=== PATIENT | female | born 1975 | race African-American/Black ===

== ENCOUNTER 2016-11-10 19:24 | Emergency (ER) | payer OTHER ==
[~2016-11-10] VITALS: Ht 175.3 cm; Wt 142.0 kg
[~2016-11-10 19:24] MED LIST: AMLODIPINE5 MG PO; BYSTOLIC5 MG PO; ENALAPRIL2.5 MG OR; FERR SULFATE325 MG PO; FLAGYL500 MG OR; FLAGYL500 MG PO; HYDROCHLOROT12.5 MG OR; KENALOG15 GM/TUBE EX; LORTAB5 OR; PARAGARD IU; PHENTERMINE HCL15 MG PO
[2016-11-10] MEDS ORDERED: LISINOPRIL10 MG PO (19:36)
[2016-11-10] MEDS ORDERED: METOPROL TAR25 MG PO (19:36)
[2016-11-10] MEDS ORDERED: LEXAPRO10 MG PO (19:36)
[2016-11-10 20:27] LABS: URINE BILIRUBIN - DIPSTICK NEGATIVE (NEGATIVE); URINE BLOOD DIPSTICK TRACE-INTACT (NEGATIVE); URINE CLARITY CLEAR; URINE COLOR YELLOW; URINE GLUCOSE - DIPSTICK NEGATIVE (NEGATIVE); URINE KETONE NEGATIVE (NEGATIVE); URINE LEUK ESTERASE NEGATIVE (NEGATIVE); URINE NITRITE - DIPSTICK NEGATIVE (Negative); URINE PROTEIN - DIPSTICK NEGATIVE (NEG-TRACE); URINE SPECIFIC GRAVITY >=1.030
[2016-11-10 20:34] LABS: HEMATOCRIT 36.8 % (37.0-47.0); IMMATURE GRANULOCYTES 0.5 % (0.0-1.0); MEAN CELL VOLUME 78.6 fL CALC (80.0-100.0); MEAN CORPUSCULAR HGB 25.6 pG CALC (26.0-32.0); MEAN CORPUSCULAR HGB CONC 32.6 g/L CALC (32.0-36.0); NEUT# 11.06 thou/uL (2.00-7.15); RED BLOOD COUNT 4.68 mill/uL (4.20-5.60); RED CELL DISTRI WIDTH 14.6 % (11.5-15.5)
[2016-11-10 20:35] LABS: BARBITURATES NEGATIVE (NEGATIVE); COCAINE NEGATIVE (NEGATIVE); METHADONE NEGATIVE (NEGATIVE); OXCYCODONE NEGATIVE (NEGATIVE); TETRAHYDROCANNABIONOL NEGATIVE (NEGATIVE); TRICYLIC ANTIDEPRESSANTS NEGATIVE (NEGATIVE)
[2016-11-10 20:48] LABS: ALBUMIN 4.2 g/dL (3.2-5.0); ALKALINE PHOSPHATASE 62 u/l (38-126); ANION GAP 17 (6-22 (CALC)); BILIRUBIN, TOTAL 0.5 mg/dL (0.0-1.4); BUN 15 mg/dL (7-17); BUN/CREATININE RATIO 18 (12-20 (CALC)); CALCIUM 8.9 mg/dL (8.4-10.2); CARBON DIOXIDE 25 mmol/l (22-30); CHLORIDE 104 mmol/l (95-108); CREATININE 0.9 mg/dL (0.5-1.0); GFR > 60 ML/MIN (>=60 (CALC)); GFR FOR AFR.AMER. > 60 ML/MIN (>=60 (CALC)); GLUCOSE 150 mg/dL (65-105); POTASSIUM 3.8 mmol/l (3.5-5.1); SGOT/AST 25 u/l (14-36); SGPT/ALT 22 u/l (9-52); SODIUM 142 mmol/l (137-146); TOTAL PROTEIN 7.4 g/dL (6.3-8.2)
[2016-11-10 20:49] LABS: INFLUENZA A NONE DETECTED (NONE DETECT); INFLUENZA B NONE DETECTED (NONE DETECT)
[2016-11-10] MEDS ORDERED: CEPHALEXIN500 MG PO (20:57)
[2016-11-10 21:05] VITALS: BP 154/81
== END 2016-11-10 21:05 | disposition home or self-care (01) | DRG 305 ==
LOC: ED 19:24
PROVIDERS: Emergency Medicine
DX: I10 Essential (primary) hypertension (principal); J06.9 Acute upper respiratory infection, unspecified; R05 Cough

== ENCOUNTER 2018-08-27 15:58 | Observation (INO) | payer OTHER ==
[~2018-08-27] VITALS: Ht 175.3 cm; Wt 136.8 kg
[~2018-08-27 15:58] MED LIST changes: +CEPHALEXIN500 MG PO; +LEXAPRO10 MG PO; +LISINOPRIL10 MG PO; +METOPROL TAR25 MG PO
[2018-08-27] MEDS ORDERED: WELLBUTRIN XL150 MG PO (16:20)
[2018-08-27] MEDS ORDERED: LOSARTAN POT50 MG PO (16:21)
[2018-08-27] MEDS ORDERED: AMLODIPINE10 MG PO (16:21)
[2018-08-27] MEDS ORDERED: BYSTOLIC20 MG PO (16:22)
[2018-08-27] MEDS ORDERED: TRULICITY1.5 MG/0.5 SC (16:22)
[2018-08-27 16:42] LABS: URINE BILIRUBIN - DIPSTICK NEGATIVE (NEGATIVE); URINE BLOOD DIPSTICK NEGATIVE (NEGATIVE); URINE COLOR YELLOW; URINE GLUCOSE - DIPSTICK NEGATIVE (NEGATIVE); URINE KETONE TRACE mg/dL (NEGATIVE); URINE LEUK ESTERASE NEGATIVE (NEGATIVE); URINE NITRITE - DIPSTICK NEGATIVE (Negative); URINE PH 6.5 (4.5-8.0); URINE PROTEIN - DIPSTICK NEGATIVE (NEG-TRACE); URINE SPECIFIC GRAVITY 1.025; URINE UROBILINOGEN - DIPSTICK 0.2 E.U./dL (0.2)
[2018-08-27 16:59] LABS: HEMATOCRIT 37.9 % (37.0-47.0); HEMOGLOBIN 12.5 g/dl (12.0-16.0); IMMATURE GRANULOCYTES 0.4 % (0.0-5.0); MEAN CELL VOLUME 80.8 fL CALC (80.0-100.0); MEAN CORPUSCULAR HGB 26.7 pG CALC (26.0-32.0); NEUT# 4.44 thou/uL (2.00-7.15); RED BLOOD COUNT 4.69 mill/uL (4.20-5.60)
[2018-08-27 17:17] LABS: ALBUMIN 4.3 g/dL (3.2-5.0); ALKALINE PHOSPHATASE 54 u/l (38-126); ANION GAP 13 (6-22 (CALC)); BILIRUBIN, TOTAL 0.4 mg/dL (0.0-1.4); BUN 11 mg/dL (7-17); BUN/CREATININE RATIO 13 (12-20 (CALC)); CARBON DIOXIDE 25 mmol/l (22-30); CHLORIDE 104 mmol/l (95-108); CREATININE 0.8 mg/dL (0.5-1.0); GFR > 60 ML/MIN (>=60 (CALC)); GFR FOR AFR.AMER. > 60 ML/MIN (>=60 (CALC)); POTASSIUM 3.9 mmol/l (3.5-5.1); SGOT/AST 18 u/l (14-36); SODIUM 138 mmol/l (137-146); TOTAL PROTEIN 7.5 g/dL (6.3-8.2)
[2018-08-27 20:55] VITALS: BP 167/107
[2018-08-28] VITALS: BP 147/81
[2018-08-28 04:00] VITALS: BP 112/63
[2018-08-28 08:41] VITALS: BP 120/71
[2018-08-28 15:40] VITALS: BP 146/99
[2018-08-28] MEDS ORDERED: ADULT ASPIRIN E81 MG PO (16:38)
[2018-08-28] MEDS ORDERED: PROTONIX40 M2 PO (16:38)
== END 2018-08-28 17:30 | disposition home or self-care (01) | DRG 313 ==
LOC: ED 15:58 → ED-I 18:32 → ED 19:03 → MS2 19:04
PROVIDERS: Family Medicine; ADMIT Internal Medicine; ATTEND Internal Medicine
DX: R07.9 Chest pain, unspecified (principal); Z68.41 Body mass index [BMI] 40.0-44.9, adult; I16.0 Hypertensive urgency; I10 Essential (primary) hypertension; E11.9 Type 2 diabetes mellitus without complications; E66.01 Morbid (severe) obesity due to excess calories; Z79.84 Long term (current) use of oral hypoglycemic drugs
CPT/HCPCS: G0378

== ENCOUNTER → 2018-10-14 | Outpatient (REF) | payer OTHER ==
[~2018-10-14] MED LIST changes: +ADULT ASPIRIN E81 MG PO; +AMLODIPINE10 MG PO; +BYSTOLIC20 MG PO; +LOSARTAN POT50 MG PO; +PROTONIX40 M2 PO; +TRULICITY1.5 MG/0.5 SC; +WELLBUTRIN XL150 MG PO
[2018-10-14 17:02] VITALS: BP 238/109
== END | disposition home or self-care (01) | DRG 313 ==
LOC: STRESS 14:53 → NUCMED 15:00
PROVIDERS: ATTEND Internal Medicine
DX: R07.89 Other chest pain (principal); I20.9 Angina pectoris, unspecified
CPT/HCPCS: A9502

== ENCOUNTER 2019-06-25 08:11 | Day surgery (SDC) | payer OTHER ==
[~2019-06-25] VITALS: Ht 175.3 cm; Wt 138.3 kg
[~2019-06-25 08:11] MED LIST changes: -BYSTOLIC20 MG PO; +DIOVAN80 MG PO; -LOSARTAN POT50 MG PO; +MULTI VIT PO; +OMEPRAZOLE DR40 MG PO; +TOPROL XL50 MG PO
[2019-06-25 11:39] VITALS: BP 139/93
== END 2019-06-25 11:40 | disposition home or self-care (01) | DRG 951 ==
LOC: ORM 08:11
PROVIDERS: ATTEND Internal Medicine Gastroenterology
PROC: 0DB78ZX Excision of Stomach, Pylorus, Via Natural or Artificial Opening Endoscopic, Diagnostic (ICD-10-PCS; principal; 2019-06-25)
PROC: 0DBL7ZX Excision of Transverse Colon, Via Natural or Artificial Opening, Diagnostic (ICD-10-PCS; 2019-06-25)
DX: Z13.810 Encounter for screening for upper gastrointestinal disorder (principal); K29.50 Unspecified chronic gastritis without bleeding; K44.9 Diaphragmatic hernia without obstruction or gangrene; K63.5 Polyp of colon; K57.30 Diverticulosis of large intestine without perforation or abscess without bleeding; K64.4 Residual hemorrhoidal skin tags; K64.8 Other hemorrhoids; D64.9 Anemia, unspecified; E66.01 Morbid (severe) obesity due to excess calories; Z68.42 Body mass index [BMI] 45.0-49.9, adult

== ENCOUNTER 2024-03-22 16:32 | Emergency (ER) | payer BC ==
[2024-03-22] VITALS (8 sets, daily range): BP systolic 138–168; BP diastolic 96–113
[~2024-03-22] VITALS: Ht 175.3 cm; Wt 97.5 kg
[~2024-03-22 16:32] MED LIST changes: +AMLODIPINE BESY10 MG PO; +KAPSPARGO SPRIN50 MG; +LOSARTAN POTASS50 MG PO; +RYBELSUS3 MG PO; +XANAX0.5 MG PO
[2024-03-22] MEDS ORDERED: PAXLOVID PO (17:44)
== END 2024-03-22 18:05 | disposition home or self-care (01) | DRG 179 ==
LOC: ED 16:32
DX: U07.1 COVID-19 (principal); R09.81 Nasal congestion; R05.9 Cough, unspecified; R50.9 Fever, unspecified; J02.9 Acute pharyngitis, unspecified; I10 Essential (primary) hypertension; E11.9 Type 2 diabetes mellitus without complications; Z98.84 Bariatric surgery status; Z79.84 Long term (current) use of oral hypoglycemic drugs

== ENCOUNTER 2024-03-26 11:44 | Emergency (ER) | payer BC ==
[~2024-03-26] VITALS: Ht 175.3 cm; Wt 97.5 kg
[~2024-03-26 11:44] MED LIST changes: +PAXLOVID PO
[2024-03-26 12:06] VITALS: BP 146/93
[2024-03-26 12:16] VITALS: BP 136/90
[2024-03-26 12:31] VITALS: BP 177/119
[2024-03-26 12:44] VITALS: BP 148/97
[2024-03-26 12:45] VITALS: BP 142/93
[2024-03-26 13:07] VITALS: BP 142/93
== END 2024-03-26 12:47 | disposition home or self-care (01) | DRG 179 ==
LOC: ED 11:44
DX: U07.1 COVID-19 (principal); R09.81 Nasal congestion; R19.7 Diarrhea, unspecified; I10 Essential (primary) hypertension; E11.9 Type 2 diabetes mellitus without complications; Z98.84 Bariatric surgery status; Z79.84 Long term (current) use of oral hypoglycemic drugs